=== PATIENT | female | born 1980 | race Caucasian/White ===

== ENCOUNTER 2023-08-09 14:18 | Emergency (ER) | payer OTHER, SELFPAY ==
[2023-08-09 14:32] VITALS: BP 121/61; PULSE 85; RESP 20; TEMP 36.2; O2SAT 100
--- NOTE | 2023-08-09 14:45 | ED.LOWEXIN ---
HPI - Extremity Injury (Lower) General Chief Complaint: Extremity Problem,Nontraumatic Stated Complaint: Right Knee Pain Time Seen by Provider: 08/09/23 14:34 Source: patient and RN notes reviewed Mode of arrival: ambulatory Limitations: no limitations History of Present Illness HPI Narrative: Patient presents today complaining of right knee pain. She initially had some pain 5 days ago and was wearing a knee brace to help with that pain as well as taking ibuprofen. Today she stepped off a curb and felt her knee pop. States her pain worsened. She currently rates her pain 9/10. Denies numbness or tingling. Pain increases with weight-bearing. Related Data Allergies Allergy/AdvReac Type Severity Reaction Status Date / Time hydrocodone Allergy Unknown Verified 10/18/21 12:19 Review of Systems Review of Systems: CONSTITUTIONAL: Denies body aches, fever, chills, or sweats. EYES: Denies visual changes, redness, or discharge. ENT: Denies rhinorrhea, congestion, sore throat, or otalgia. CARDIOVASCULAR: Denies chest pain, palpitations, or edema. RESPIRATORY: Denies cough or dyspnea. GASTROINTESTINAL: Denies abdominal pain, nausea, vomiting, or diarrhea. GENITOURINARY: Denies dysuria or hematuria. SKIN: Denies rash, itching, or wounds. MUSCULOSKELETAL: Denies back pain, or myalgia.+ right knee pain NEUROLOGIC: Denies headache, numbness, tingling, or weakness. PSYCH: Denies depression or anxiety. PMFSH Comments At time of signature, I have reviewed and agree with nursing past medical, surgical, social and family history unless otherwise noted. Please see nursing chart for further information. There is no relevant family history pertinent to the presenting complaint Exam Narrative: GENERAL: Well-appearing, well-nourished, and in no acute distress. HEAD: Normocephalic, atraumatic. EYES: EOMI. No redness or drainage. Conjunctivae normal. ENT: Mucous membranes pink and moist. NECK: Normal AROM. CHEST: No respiratory distress. EXTREMITIES: Right knee: Patient localizes her pain posteriorly and is mildly tender to palpation. No tenderness in the rest of the knee. No edema, ecchymosis, erythema noted. Mild pain posteriorly range of motion in all directions. Distal sensation intact. Capillary refill. SKIN: Warm, dry, no rash. Capillary refill normal. Normal skin turgor. NEURO: No focal deficits. Alert and oriented x3. Gait steady. PSYCH: Normal affect. No signs of depression or anxiety. Course Course Level of Care: Express Care Visit Vital Signs Vital signs: Vital Signs Temperature 97.2 F L 08/09/23 14:32 Pulse Rate 85 08/09/23 14:32 Respiratory Rate 20 08/09/23 14:32 Blood Pressure 121/61 08/09/23 14:32 Pulse Oximetry 100 08/09/23 14:32 Oxygen Delivery Room Air 08/09/23 14:32 Temperature 97.2 F L 08/09/23 14:32 Pulse Rate 85 08/09/23 14:32 Respiratory Rate 20 08/09/23 14:32 Blood Pressure 121/61 08/09/23 14:32 Pulse Oximetry 100 08/09/23 14:32 Oxygen Delivery Room Air 08/09/23 14:32 Reviewed MDM - Extremity Injury (Lower) MDM Narrative Medical decision making narrative: Discussed with patient the limitations of x-ray, especially since she has not had a traumatic injury. She has declined an x-ray today. Recommend following up with PCP or orthopedics for further evaluation. Prescription for diclofenac sent to pharmacy. Anticipatory guidance given. Differential Diagnosis Differential diagnosis: Likely other (Knee strain, ligamentous injury, meniscus injury) Critical Care Time Critical Care Time Critical Care Time: No Discharge Plan Discharge Clinical Impression: Knee pain, right Patient Disposition: Home, Self-Care Condition: Stable Instructions: Knee Pain (ED) Additional Instructions: Elevate and ice the knee. Continue using the knee brace for compression. Take the diclofenac as prescribed. Do not take any additional ibuprofen i
== END 2023-08-09 14:55 | disposition home or self-care (01) ==
PROVIDERS: Emergency Provider Nurse Practitioner
DX: M25.561 Pain in right knee (principal)
CPT/HCPCS: 99213; G0463

== ENCOUNTER 2023-09-22 14:51 | Outpatient (CLI) | payer OTHER, SELFPAY ==
--- NOTE | ~2023-09-22 | MR_ITS ---
EXAMINATION: MR knee RT wo con DATE: 09/22/2023 15:59 INDICATION: S83.241A - Other tear of medial meniscus, current injury,... TECHNIQUE: Magnetic resonance imaging (MRI) of the right knee was performed without intravenous contr ast. Sequences included axial PD-weighted FS FSE, coronal PD-weighted FSE and PD-weighted FS FSE, sag ittal PD-weighted FSE, and sagittal T2-weighted FS FSE. COMPARISON: X-ray right knee 08/12/2023, images only FINDINGS: Medial compartment: Meniscus intact. Mild diffuse cartilage thinning. Mild osteophytosis. Lateral compartment: Meniscus intact. Mild diffuse cartilage thinning. Moderate osteophytosis. Patellofemoral compartment: Full-thickness cartilage loss on the lateral facet. Moderate osteophytosis. Retinacula intact. Ligaments and tendons: The ACL, PCL, MCL, and LCL are intact. Remaining flexor and extensor tendons are intact. Fluid: Small volume joint fluid. Tiny Proctor's cyst. Osseous/other: No suspicious focal or diffuse marrow signal. 8mm cystic-appearing lesion in the femur, no aggressive features. Multiple degenerative subchondral cysts in the posterior tibia. IMPRESSION: No MR evidence of internal derangement. Moderate tricompartmental osteoarthritis Reviewed, dictated and finalized at location K.
== END 2023-09-22 14:52 ==
LOC: MICIMG 14:52
PROVIDERS: PCP Orthopaedic Surgery; Visit Provider Orthopaedic Surgery
DX: S83.241A Other tear of medial meniscus, current injury, right knee, initial encounter (principal); X58.XXXA Exposure to other specified factors, initial encounter; M17.11 Unilateral primary osteoarthritis, right knee
CPT/HCPCS: 73721